=== PATIENT | female | born 1945 | race Caucasian/White ===

== ENCOUNTER 2020-08-20 13:50 | Emergency (ER) | payer MEDICARE, OTHER ==
[~2020-08-20] VITALS: Ht 154.9 cm; Wt 61.2 kg
[2020-08-20 14:10] VITALS: BP 162/82
--- NOTE | 2020-08-20 14:12 | NUR ---
ULTRASOUND YUSRA CALLED OUT FOR ULTRASOUND.
[2020-08-20 14:15] VITALS: BP 162/82
--- NOTE | 2020-08-20 14:17 | NUR ---
ARRIVAL PATIENT ARRIVED TO ED4 VIA W/C, C/O OF LEFT LOWER LEG PAIN FOR THE PAST 2 WEEKS, HAS BEEN TAKING IBUPROFEN AND IT UPSET HER STOMACH SHE SHE STOPPED AND THE LEG BEGAN TO HURT AGAIN, DECIDED TO COME TO THE ED FOR EVAL. DOCTOR CHEKO TO ROOM.
--- NOTE | 2020-08-20 14:18 | ER.PDOC ---
General Chief Complaint: Extremities Stated Complaint: LEG PAIN - 1 WK TRAVEL OUT OF US: No Time seen by MD: 14:11 Source: patient Exam Limitations: no limitations History of Present Illness Timing/Duration: 1 week Severity: moderate Modifying Factors: improves with immobilization, improves with rest Associated Symptoms: other (LBA) Allergies: Coded Allergies: No Known Allergies (Unverified , 08/20/20) Past Medical History Medical History: high cholesterol, thyroid disease Surgical History: tonsillectomy, other LMP (females 10-50): hysterectomy Social History Alcohol Use: none Drug Use: none Reviewed Nursing Reviewed: Vital Signs, Abn. Noted Review of Systems All Other Systems: Reviewed and Negative Physical Exam General Appearance: No Apparent Distress EENT: eyes nml inspection Neck: Non-Tender Respiratory: chest non-tender CVS: reg rate & rhythm Gastrointestinal: Normal Bowel Sounds Back: Normal Inspection Extremities: Pedal Edema, Swelling Neurologic/Psychiatric: staff research associate II-XII NML as Tested, Motor Weakness Skin: Normal Color Lymphatic: No Adenopathy Results/Orders Results/Orders Orders - LUCAS STILL MD Cbc With Auto Diff (08/20/20 14:13) Comprehensive Metabolic Panel (08/20/20 14:13) Creatine Kinase (08/20/20 14:13) Creatine Kinase Mb (08/20/20 14:13) Troponin I (08/20/20 14:13) Probnp B-Type Photographer'S Model (08/20/20 14:13) PT (08/20/20 14:13) Partial Thromboplastin Time. (08/20/20 14:13) D-Dimer (08/20/20 14:13) Ekg-Routine (08/20/20 14:13) Us Lt Vein U/L (08/20/20 14:13) Rivaroxaban (Xarelto) (08/20/20 15:20) Vital Signs Date Time Temp Pulse Resp B/P (MAP) Pulse Ox O2 Delivery O2 Flow Rate FiO2 08/20/20 15:17 98.3 96 20 153/91 (111) 94 Room Air 08/20/20 14:15 98.3 102 20 162/82 (108) 94 Room Air 08/20/20 14:10 98.3 102 20 08/20/20 14:10 98.3 102 20 162/82 (108) 94 Room Air 08/20/20 14:10 98.3 102 20 94 Laboratory Tests Test 08/20/20 14:25 White Blood Count 6.7 10^3/uL (4.5-11.0) Red Blood Count 4.17 10^6/uL (4.00-5.20) Hemoglobin 12.9 g/dL (12.0-15.0) Hematocrit 36.6 % (36.0-46.0) Mean Corpuscular Volume 87.8 fL (78-100) Mean Corpuscular Hemoglobin 30.9 pg (26-34) Mean Corpuscular Hemoglobin Concent 35.2 g/dL (33-36.5) Red Cell Distribution Width 13.1 % (11.5-14.5) Platelet Count 166 10^3/uL (150-400) Mean Platelet Volume 10.7 fL (7.8-11.0) Neutrophils (%) (Auto) 82.6 % (41.0-85.0) Lymphocytes (%) (Auto) 3.2 % (24.0-44.0) *L Monocytes (%) (Auto) 12.8 % (5.0-12.0) H Neutrophils # (Auto) 5.5 10^3/uL (1.8-7.7) Lymphocytes # (Auto) 0.21 10^3/uL1 (1.0-4.8) L Monocytes # (Auto) 0.9 10^3/uL (0.3-0.8) H Absolute Immature Granulocyte (auto 0.02 10^3 u/L (0-2) Absolute Eosinophils (auto) 0.0 10^3/uL (0.0-0.2) Immature Granulocytes % 0.30 % (0.00-0.50) Eosinophils % 0.6 % (0.0-5.0) Basophils % 0.5 % (0.0-0.2) H Basophils # 0.0 10^3/uL (0.0-0.1) Prothrombin Time 11.2 SEC (9.3-11.3) Prothrombin Time INR (Non-Therap) 1.1 Activated Partial Thromboplast Time 23.3 SEC (24.67-30.72) D-Dimer 12.64 mg/L (0.19-0.49) *H Sodium Level 136 mmol/L (132-145) Potassium Level 4.0 mmol/L (3.6-5.2) Chloride Level 99.0 mmol/L (96-109) Carbon Dioxide Level 27.7 mmol/L (20.0-32) Anion Gap 13.3 Blood Urea Nitrogen 25 mg/dL (7-18) H Creatinine 1.82 mg/dL (0.59-1.40) H Estimated GFR () 32.8 (>/=60) Est GFR (CKD-EPI)(Non-Afr [place]orran) 27.1 (>/=60) BUN/Creatinine Ratio 13.0 Glucose Level 104 mg/dL (70-110) Calcium Level 9.6 mg/dL (8.4-10.5) Total Bilirubin 1.0 mg/dL (0.2-1.0) Aspartate Amino Transferase (AST) 24 U/L (0-35) Alanine Aminotransferase (ALT) 16 U/L (12-78) Alkaline Phosphatase 79 U/L (50-136) Total Creatine Kinase 52 U/L (26-192) Creatine Kinase MB 1.2 ng/mL (0.5-3.6) Troponin I < 0.02 ng/mL (0.00-0.05) Pro-B-Type Natriuretic Peptide 301 pg/mL (0-450) Total Protein 6.6 g/dL (6.4-8.2) Albumin 3.5 g/dL (3.4-5.0) Globulin 3.1 Albumin/Globulin Ratio 1.129 EKG/XRAY/CT/US EKG: NSR, no ST T wave changes ER DEPART Departure Time of Disposition: 16:00 Disposition: 01 HOME, SELF-CARE Impression: Primary Impression: DVT (deep venous thrombosis) Condition: Stable Referrals: PCP,UNKNOWN (PCP) PRIMARY CARE PROVIDER Duration or Time Spent with Pa: 16M LUCAS STILL MD Aug 20, 2020 14:18
--- NOTE | 2020-08-20 14:22 | PCM.EKG ---
[facility] Test Date: 2020-08-20 Test Time: 14:20:04 Pat Name: DEMIAN HARRIS Department: Room: Gender: F Manager Student Services: BILLIE : 1945 Requested By: LUCAS STILL Order Number: [id number] Reading MD: Measurements Intervals [place] Rate: 91 P: 72 AK: 141 QRS: -21 QRSD: 92 T: 50 QT: 417 QTc: 514 Interpretive Statements Sinus rhythm Probable left atrial enlargement RSR' in V1 or V2, probably normal variant Inferior infarct, old Prolonged QT interval No previous ECG available for comparison Please click the below link to view image of tracing.
[2020-08-20 14:30] LABS: BASOPHIL % 0.5 % (0.0-0.2); EOSINOPHIL % 0.6 % (0.0-5.0); LYMPHOCYTES # 0.21 10^3/uL1 (1.0-4.8); LYMPHOCYTES % 3.2 % (24.0-44.0); MEAN CORP HGB 30.9 pg (26-34); MONOCYTES # 0.9 10^3/uL (0.3-0.8); MONOCYTES % 12.8 % (5.0-12.0); NEUTROPHIL # 5.5 10^3/uL (1.8-7.7); NEUTROPHILS % 82.6 % (41.0-85.0); PLATELET COUNT 166 10^3/uL (150-400); RED CELL DISTRIBUTION WIDTH 13.1 % (11.5-14.5)
--- NOTE | 2020-08-20 14:31 | NUR ---
ULTRASOUND YUSRA WITH ULTRASOUND HERE.
[2020-08-20 15:04] LABS: ALANINE AMINOTRANSFERASE(ML) 16 U/L (12-78); ALKALINE PHOSPHATASE 79 U/L (50-136); ASPARTATE AMINO TRANSFERASE 24 U/L (0-35); CALCIUM 9.6 mg/dL (8.4-10.5); CARBON DIOXIDE 27.7 mmol/L (20.0-32); GLUCOSE 104 mg/dL (70-110)
--- NOTE | 2020-08-20 15:16 | NUR ---
CRITICAL POSITIVE DVT REPORTED TO DR STILL.
[2020-08-20 15:17] VITALS: BP 153/91
--- NOTE | 2020-08-20 15:17 | NUR ---
CRITICAL LAB D-DIMER 12.64, DOCTOR CHKEO NOTIFIED.
[2020-08-20] MEDS ORDERED: XARELTO ONE (15:20)
--- NOTE | 2020-08-20 15:25 | DIREP ---
PROCEDURE:US DUPLEX EXTREM VEINS UNILATER/LIMITED-LT COMPARISON:None. INDICATIONS:dvt lle, LLE Swelling TECHNIQUE:The left lower extremity was evaluated utilizing strange scale images with segmental compression, color Doppler, and spectral Doppler with respiratory variation and augmentation. FINDINGS: Common femoral vein:Occlusive deep venous thrombosis Superficial femoral vein:Partially occlusive deep venous thrombosis Popliteal vein:Patent Posterior tibial vein:Patent Peroneal vein:Patent Greater saphenous vein:Partially occlusive deep venous thrombosis Profunda femoris:Partially occlusive deep venous thrombosis Waveforms: Within normal limits. CONCLUSION:Deep venous thrombosis seen from the common femoral vein through the superficial femoral vein This report was called by telephone at 3:22 pm on August 20, 2020 to Carmelo Arriaga . Dictated by: Dave Castro DO on 08/20/2020 at 03:20 PM
[2020-08-20 15:42] LABS: BASOPHIL 1 % (0-2); EOSINOPHIL 1 % (1-4); LYMPHOCYTE 2 % (25-36); MONOCYTE 9 % (3-9); SEGMENTED NEUTROPHILS 87 % (31-76)
== END 2020-08-20 15:37 | disposition home or self-care (01) ==
LOC: ER 13:50
DX: I82.412 Acute embolism and thrombosis of left femoral vein (principal); E07.9 Disorder of thyroid, unspecified; E78.00 Pure hypercholesterolemia, unspecified; Z90.710 Acquired absence of both cervix and uterus
CPT/HCPCS: 36415; 80053; 82550; 82553; 83880; 84484; 85025; 85379; 85610; 85730; 93005; 99285; 93971

== ENCOUNTER → 2020-08-25 | Outpatient (CLI) | payer MEDICARE, OTHER ==
--- NOTE | 2020-08-25 12:59 | DIREP ---
PROCEDURE:CT ABDOMEN/PELVIS W/O CONTRAST COMPARISON:None. INDICATIONS:UPPER BACK PAIN, KIDNEY STONE TECHNIQUE:Axial images were created through the abdomen and pelvis without intravenous contrast material. No oral contrast was administered. Sagittal and coronal reconstructions were performed from source images. FINDINGS:Evaluation is markedly limited without intravenous contrast. LUNG BASES:Small foci of bullous emphysema. Small right pleural effusion. No focal airspace consolidation. LIVER:Normal. No significant liver lesions are identified. BILIARY:Normal. No visible dilatation or calcification. PANCREAS:Normal. No lesion, fluid collection, ductal dilatation, or atrophy. SPLEEN:Normal. No enlargement or focal lesion. ADRENALS:Normal. No mass or enlargement. URINARY TRACT:Marked bilateral hydroureteronephrosis, likely secondary to obstruction from the makenzie mass. No discrete urolithiasis noted. AORTA/VASCULAR:Normal. No aneurysm. RETROPERITONEUM:A large conglomerate makenzie mass is seen within the retroperitoneum, measuring on the order of 11 cm transverse by 5.0 cm AP by 15.2 cm craniocaudal. BOWEL/MESENTERY:Normal. There is no intestinal obstruction, free fluid, free air or mesenteric inflammatory changes. ABDOMINAL WALL:Normal. No mass or hernia. PELVIC ORGANS:Normal. No visible mass. Pelvic organs appropriate for patient age. BONES:Diffuse degenerative changes. No acute bony abnormality. OTHER:Negative. CONCLUSION:1. Large conglomerate makenzie mass within the retroperitoneum, measuring up to 15 cm. This is highly suspicious for neoplastic process such as lymphoma. Contrast enhanced CT is recommended for further evaluation. 2. Marked bilateral hydroureteronephrosis, likely secondary to obstruction frontal mass. This report was called by telephone at 12:58 pm on August 25, 2020 to Conchita Acosta [facility] . Dictated by: Alanna Mchugh M.D. on 08/25/2020 at 12:47 PM
== END | disposition home or self-care (01) ==
LOC: RAD 10:05
PROVIDERS: ATTEND Nurse Practitioner Family
DX: N13.30 Unspecified hydronephrosis (principal); J43.9 Emphysema, unspecified; J90 Pleural effusion, not elsewhere classified; R19.09 Other intra-abdominal and pelvic swelling, mass and lump; Z03.89 Encounter for observation for other suspected diseases and conditions ruled out
CPT/HCPCS: 74176